=== PATIENT | male | born 1935 | race Caucasian/White ===

== ENCOUNTER 2021-11-11 14:50 | Emergency (ER) | payer MEDICARE | END 2021-11-11 19:55 | disposition home or self-care (01) | LOC: CSHERS 14:50 | DX: M79.672 Pain in left foot (principal); I11.0 Hypertensive heart disease with heart failure; I50.9 Heart failure, unspecified; E11.9 Type 2 diabetes mellitus without complications; Z79.899 Other long term (current) drug therapy | CPT/HCPCS: 93923 ==